=== PATIENT | male | born 1970 | race African-American/Black ===

== ENCOUNTER 2020-03-07 23:54 | Emergency (ER) | payer MEDICAID, OTHER ==
[2020-03-08 00:38] LABS: #Eosinphils 0.3 thou/uL (0.0-0.7); #Lymphocytes 3.4 thou/uL (1.20-3.40); #Monocytes 1.6 thou/uL (0.11-0.59); #Neutrophils 7.3 thou/uL (1.40-6.50); %Basophils 0.3 % (0.0-1.0); %Eosinophils 2.6 % (0.0-10.0); %Lymphocytes 27.1 % (21.0-51.0); %Monocytes 12.4 % (0.0-10.0); %Neutrophils 57.6 % (42.0-75.0); Hemoglobin 16.2 g/dL (14.0-18.0); Mean Corpuscular HGB CONC 32.5 g/dL (32.0-36.0); Mean Corpuscular Hemoglobin 30.8 pg (27.0-31.0); Mean Corpuscular Volume 94.9 fL (78.0-98.0); Mean Platelet Volume 7.9 fL (7.4-10.4); Platelet Count 193 thou/uL (130-400); RBC Distribution Width 12.9 % (11.5-14.5); Red Blood Cell (RBC) Count 5.26 mill/uL (4.70-6.10); White Blood Cell (WBC) Count 12.7 thou/uL (4.8-10.8)
[2020-03-08 01:04] LABS: ALT (SGPT) 27 U/L (8-55); AST (SGOT) 19 U/L (5-34); Albumin 3.8 g/dL (3.5-5.0); Alkaline Phosphatase 72 U/L (40-110); Anion Gap 13 mmol/L (10-20); BUN (Urea Nitrogen) 19 mg/dL (8.9-20.6); Bilirubin, Total 0.6 mg/dL (0.2-1.2); CK (CPK) 284 U/L (30-200); Calc. Creatinine Clearance 0 mL/min (70-130); Calcium 8.6 mg/dL (7.8-10.44); Carbon Dioxide 26 mmol/L (22-29); Chloride 100 mmol/L (98-107); Globulin 2.9 g/dL (2.4-3.5); Glucose 110 mg/dL (70-105); Lipase 25 U/L (8-78); Potassium 3.4 mmol/L (3.5-5.1); Protein, Total 6.7 g/dL (6.0-8.3); Sodium 136 mmol/L (136-145)
[2020-03-08] MEDS ORDERED: Lidocaine Viscous Sol 2% 15 ml UD Cup ONE (01:59)
[2020-03-08] MEDS ORDERED: Mag-Al 1200 mg/1200 mg/30 ML UDCUP ONE (01:59)
[2020-03-08 02:48] LABS: Troponin I Less than 0.010 ng/mL (< 0.028)
[2020-03-08] MEDS ORDERED: Morphine 4 MG/ML VIAL ONE (03:01)
[2020-03-08] MEDS ORDERED: Ondansetron PF 4 MG/2 ML Vial ONE (03:01)
--- NOTE | 2020-03-08 07:22 | CT ---
PRELIMINARY REPORT/[facility]/EMERGENCY AFTER HOURS PROCEDURE EXAM: CTA Chest with Intravenous Contrast CLINICAL HISTORY: M48, PT REPORTS ONSET CHEST PAIN TONIGHT APPROX 2330. PT DENIES N/V/D, SOB, F/C. PT STATES HE HAS HAD SIMILAR PAIN IN THE PAST, BUT TUMS TYPICALLY ALLEVIATES THE PAIN AND DID NOT CHANGE IT MUCH TONIGHT. TECHNIQUE: Axial CTA images of the chest with intravenous contrast. Three-dimensional MIP/volume rendered reform ations were performed. CONTRAST: With; 70ML ISOVUE 370 COMPARISON: None provided. FINDINGS: PULMONARY ARTERIES There is no intraluminal filling defect suspicious for PE. AORTA No thoracic aortic aneurysm or dissection. LUNGS Focal nodular opacity seen in the peripheral left upper lobe measuring 1.0 x 0.9 cm. PLEURAL SPACES No pleural effusion. No pneumothorax. HEART AND MEDIASTINUM No cardiomegaly. No significant pericardial effusion. LYMPH NODES No lymphadenopathy. BONES No focal osseous abnormality or acute fracture. CHEST WALL AND UPPER ABDOMEN Images through the upper abdomen are unremarkable. The chest wall is unremarkable. IMPRESSION: No evidence for acute pulmonary embolus. Focal nodular opacity seen in the peripheral left upper lobe measuring 1.0 x 0.9 cm. This may represe nt possible infectious versus inflammatory etiology, however close continued follow-up recommended after treatment to ensure resolution and exclude underlying pulmonary nodule. ELECTRONICALLY SIGNED BY: Rasta Mejia MD Mar 08, 2020 3:49:11 AM TRAUMA DIRECTOR This report is intended for review by the ordering physician only, in accordance of law. If you recei ve this report in error, please call [facility] at [phone]. FINAL REPORT Exam: CT angiogram of the chest HISTORY: Chest pain. COMPARISON: None TECHNIQUE: CT angiogram of the chest is performed in the axial plane. Three-dimensional reformatted i mages are submitted for interpretation FINDINGS: Mediastinum: No mass, lymphadenopathy or hematoma. HEART: Normal size. No significant pericardial fluid. Aorta: No aneurysm or dissection Upper solid abdominal viscera: No abnormality enhancement. Trachea and central bronchi: Patent Pleural spaces: No effusion Lung parenchyma: No right lung masses or consolidation. Focal nodular groundglass opacity in the late ral aspect of the left upper lobe. Lesion measures approximately 1.2 x 1.6 cm. Pneumothorax: None Osseous structures: No lytic or blastic lesions Pulmonary arteries: Adequate contrast opacification pulmonary arterial system to the level of segment al arteries. No filling defect to suggest pulmonary embolism IMPRESSION: 1. This report is in agreement with initial report by [facility]. 2. No evidence of pulmonary artery embolism to the level of the segmental arteries.. 3. Focal opacity in the lateral aspect of the left upper lobe. Correlate for infectious or inflammato ry process. CODE LN. Transcribed Date/Time: 03/08/2020 7:31 AM
--- NOTE | 2020-03-08 07:36 | RAD ---
Exam: Chest one view HISTORY:Left-sided chest pain. Comparison: None FINDINGS: Cardiac silhouette: Normal Aorta: Unremarkable Pulmonary vessels: Normal Costophrenic angles: Clear LUNGS: No masses or consolidation. Pneumothorax: None Osseous abnormalities: None IMPRESSION: No acute cardiopulmonary process.
== END 2020-03-08 04:50 | disposition home or self-care (01) ==
LOC: ERS 23:54
DX: R07.2 Precordial pain (principal); I10 Essential (primary) hypertension
CPT/HCPCS: 36415; 71045; 71275; 80053; 82550; 83690; 84484; 85025; 93005; 96374; 96375; J2270; J2405

== ENCOUNTER 2020-03-08 10:28 | Observation (INO) | payer MEDICARE, MEDICAID ==
[2020-03-08] MEDS ORDERED: Heparin 10,000 UNITS/ 10 ML VIAL ONE ×2 (10:42→10:52)
[2020-03-08] MEDS ORDERED: Aspirin Chewable 81 MG TAB ONE (10:42)
[2020-03-08] MEDS ORDERED: Nitroglycerin 50 MG/250 ML BOT 0 ML ONE (10:42)
[2020-03-08] MEDS ORDERED: Nitroglycerin 0.4 MG TAB 1 EACH ONE (10:43)
[2020-03-08 10:54] LABS: #Eosinphils 0.2 thou/uL (0.0-0.7); #Lymphocytes 1.8 thou/uL (1.20-3.40); #Monocytes 1.6 thou/uL (0.11-0.59); #Neutrophils 9.5 thou/uL (1.40-6.50); %Basophils 0.1 % (0.0-1.0); %Eosinophils 1.4 % (0.0-10.0); %Lymphocytes 13.7 % (21.0-51.0); %Neutrophils 72.8 % (42.0-75.0); Hemoglobin 15.7 g/dL (14.0-18.0); Mean Corpuscular HGB CONC 33.1 g/dL (32.0-36.0); Mean Corpuscular Hemoglobin 31.6 pg (27.0-31.0); Mean Corpuscular Volume 95.4 fL (78.0-98.0); Mean Platelet Volume 8.1 fL (7.4-10.4); Platelet Count 167 thou/uL (130-400); RBC Distribution Width 12.6 % (11.5-14.5); Red Blood Cell (RBC) Count 4.97 mill/uL (4.70-6.10)
--- NOTE | 2020-03-08 10:54 | RAD ---
EXAM: Portable chest PROVIDED CLINICAL HISTORY: Chest pain COMPARISON: 03/08/2020 12:12 AM FINDINGS: Cardiac and mediastinal silhouette is within normal limits. No focal consolidation, pleural fluid or pneumothorax evident. IMPRESSION: No evidence for an acute cardiopulmonary process.
[2020-03-08] MEDS ORDERED: Ondansetron PF 4 MG/2 ML Vial ONE (10:55)
[2020-03-08] MEDS ORDERED: Morphine 2 MG/ML VIAL ONE (10:55)
[2020-03-08] MEDS ORDERED: Fentanyl 100 MCG/2 ML VIAL ONE (11:13)
[2020-03-08] MEDS ORDERED: Midazolam HCl 2 mg/2 ml Vial ONE (11:14)
[2020-03-08 11:19] LABS: ALT (SGPT) 24 U/L (8-55); AST (SGOT) 17 U/L (5-34); Albumin 3.8 g/dL (3.5-5.0); Alkaline Phosphatase 66 U/L (40-110); Anion Gap 16 mmol/L (10-20); BUN (Urea Nitrogen) 12 mg/dL (8.9-20.6); Bilirubin, Total 0.9 mg/dL (0.2-1.2); CK (CPK) 243 U/L (30-200); Calc. Creatinine Clearance 0 mL/min (70-130); Calcium 8.8 mg/dL (7.8-10.44); Carbon Dioxide 22 mmol/L (22-29); Chloride 103 mmol/L (98-107); Globulin 2.8 g/dL (2.4-3.5); Glucose 135 mg/dL (70-105); Lipase 11 U/L (8-78); Potassium 3.3 mmol/L (3.5-5.1); Protein, Total 6.6 g/dL (6.0-8.3); Sodium 138 mmol/L (136-145)
[2020-03-08 11:30] LABS: INR-International Normal Ratio 0.9; PTT 23.7 sec (22.9-36.1); Prothrombin Time 12.5 sec (12.0-14.7)
[2020-03-08] MEDS ORDERED: Acetaminophen/Codeine 30-300mg Tablet PO PRN (11:44)
[2020-03-08] MEDS ORDERED: Sodium Chloride 0.9% 200 ML IV PRN (11:44)
[2020-03-08] MEDS ORDERED: Nitroglycerin 0.4 MG TAB (25 Tab Bottle) SL PRN (11:44)
[2020-03-08] MEDS ORDERED: Protamine Sulfate 50 MG/5 ML VIAL ONE (11:45)
[2020-03-08] MEDS ORDERED: Sodium Chloride 0.9% 1,000 ML IV SCH (11:45)
[2020-03-08] MEDS ORDERED: Nitroglycerin 4.9 GM Bottle ONE ×2 (11:56→15:07)
[2020-03-08 12:28] VITALS: BMI 33.1
[2020-03-08] MEDS ORDERED: Iopamidol 370 76% 50 ML VIAL FS ONE (13:03)
[2020-03-08] MEDS ORDERED: Iopamidol 370 76% 100 ML VIAL ONE (13:03)
[2020-03-08] MEDS: Acetaminophen/Codeine 30-300mg Tablet PO PRN ×2 (13:07→17:20)
--- NOTE | 2020-03-08 13:40 | HP ---
HISTORY: Forrest Brumfield is a 49-year-old black male, who came to the emergency room last night. At approximately 11 p.m., he had onset of sharp left-sided chest discomfort and came to the hospital about midnight. EKG and cardiac enzymes were unremarkable and ultimately he was discharged. When he went home this morning, he again had same discomfort and came back to the emergency room. While he was having the chest pain, his EKG showed new changes with [address]-segment elevation only in V2, but otherwise unremarkable. His pain then resolved and ST-segment returned to normal. He denies any shortness of breath, nausea, vomiting, or diaphoresis with the discomfort. PAST MEDICAL HISTORY: Hypertension. He denies any history of hypercholesterolemia or diabetes. OPERATIONS: None. MEDICATIONS: None. SOCIAL HISTORY: He abuses marijuana. He uses vaping. FAMILY HISTORY: Negative for coronary artery disease. REVIEW OF SYSTEMS: A 10-point review of systems unremarkable. PHYSICAL EXAMINATION: VITAL SIGNS: Blood pressure 117/76, pulse of 93. HEENT: PERRL. NECK: Supple. CHEST: Clear. CARDIAC: S1 and S2 normal without any S3, S4, or murmurs. Carotid upstrokes normal without bruits. ABDOMEN: Normal bowel sounds without tenderness or organomegaly. EXTREMITIES: Revealed no clubbing, cyanosis, or edema. NEUROLOGIC: Grossly intact. SKIN: Warm and dry. LABORATORY DATA: EKGs are normal except for the one when he was readmitted today which showed 2mm of ST elevation in lead V2. Chest CTA this morning prior to discharge revealed no evidence of pulmonary embolism. Hemoglobin 16.2, hematocrit 49.9, white count 12,700, platelets 193,000. Troponin I is negative x2. Sodium 136, potassium 3.4, chloride 100, carbon dioxide 26, BUN 19, creatinine 1.32. IMPRESSION: 1. Acute coronary syndrome with [address]-segment elevation in V2 only, which resolved when he is pain free. 2. Hypertension. 3. Marijuana use. 4. Uses vaping. 5. Chronic kidney disease. He earlier today had a contrast load with CT angiogram of the chest and going to [facility] where we give him a second contrast load; however, I feel that is appropriate with his EKG changes when he came in. RECOMMENDATIONS: The situation was discussed with the patient. It is recommended that he undergo cardiac catheterization. Risks were discussed including , myocardial infarction, dye reaction, vascular injury, CVA, transfusion, limb loss, renal loss, etc. Also risk of intervention with PTCA and stent placement were discussed including , myocardial infarction, emergent CABG, restenosis, stent thrombosis, vessel perforation, etc. He has had no history of gastrointestinal bleeding or stroke. He does not have any upcoming surgical procedures. It is recommended that a drug-eluting stent be placed if needed. Job ID: [id number] MTDD
[2020-03-08] MEDS ORDERED: Morphine 4 MG/ML VIAL SLOW IVP PRN (14:18)
[2020-03-08] MEDS ORDERED: Iopamidol-370 76% 500 ML 1 ML ONE (14:52)
[2020-03-08 18:40] LABS: Amphetamine Not Detected (NotDetected); Barbiturates Screen Not Detected (NotDetected); Benzodiazepine Screen Not Detected (NotDetected); Cocaine Metabolite Screen Not Detected (NotDetected); Medtox Control Line Valid? VALID (VALID); Medtox Reader # READER 4; Methadone Not Detected (NotDetected); Methamphetamine Not Detected (NotDetected); Opiate Screen Detected (NotDetected); Oxycodone Screen Not Detected (NotDetected); Phencyclidine (PCP) Not Detected (NotDetected); THC/Cannabinoid Screen Detected (NotDetected); Tricyclic Screen Not Detected (NotDetected)
[2020-03-08 19:54] LABS: Troponin I Less than 0.010 ng/mL (< 0.028)
[2020-03-09 04:21] LABS: SARS-CoV-2 PCR by NAA Not Detected (NotDetected)
[2020-03-09 05:08] LABS: Anion Gap 9 mmol/L (10-20); BUN (Urea Nitrogen) 8 mg/dL (8.9-20.6); Calc. Creatinine Clearance 124 mL/min (70-130); Calcium 8.5 mg/dL (7.8-10.44); Carbon Dioxide 28 mmol/L (22-29); Cardiac Risk 2.6 (Less than 4.5); Chloride 102 mmol/L (98-107); Cholesterol 128 mg/dl (< 200 Desired); Glucose 122 mg/dL (70-105); HDL Cholesterol 49 mg/dL (>60 Neg Risk); LDL Cholesterol, Calculated 68 mg/dL; Potassium 3.4 mmol/L (3.5-5.1); Sodium 136 mmol/L (136-145); Triglycerides 56 mg/dL (Less than 150)
[2020-03-09] MEDS: Amlodipine 5 MG TAB PO SCH (09:15)
[2020-03-09] MEDS: Acetaminophen/Codeine 30-300mg Tablet PO PRN (09:16)
[2020-03-09] MEDS: Aspirin 81 mg Enteric Coated Tablet PO SCH (09:16)
[2020-03-09] MEDS ORDERED: Potassium Chloride 20 MEQ TAB PO SCH (11:45)
--- NOTE | 2020-03-09 14:31 | RAD ---
Portable frontal chest radiograph: 03/09/2020 COMPARISON: 03/08/2020 HISTORY: Short of breath FINDINGS: There is a hazy area of peripheral groundglass opacity within the mid left lung zone which appears new when compared to the prior examination and may signify developing infectious pneumonitis. Right lung appears clear. Heart and mediastinal contours are unremarkable. IMPRESSION: New area of peripheral groundglass opacity within the lateral mid left lung zone. Questio n a history of Covid positive status.
[2020-03-09 14:59] LABS: Lactic Acid 1.4 mmol/L (0.5-2.2)
[2020-03-09 15:04] LABS: Anion Gap 15 mmol/L (10-20); BUN (Urea Nitrogen) 8 mg/dL (8.9-20.6); Calc. Creatinine Clearance 133 mL/min (70-130); Calcium 8.8 mg/dL (7.8-10.44); Carbon Dioxide 23 mmol/L (22-29); Chloride 104 mmol/L (98-107); Glucose 131 mg/dL (70-105); Magnesium 2.2 mg/dL (1.6-2.6); Potassium 3.8 mmol/L (3.5-5.1); Sodium 138 mmol/L (136-145)
[2020-03-09 15:05] LABS: Hemoglobin 14.4 g/dL (14.0-18.0); Mean Corpuscular HGB CONC 32.9 g/dL (32.0-36.0); Mean Corpuscular Hemoglobin 30.9 pg (27.0-31.0); Mean Platelet Volume 8.2 fL (7.4-10.4); Platelet Count 173 thou/uL (130-400); RBC Distribution Width 12.5 % (11.5-14.5); Red Blood Cell (RBC) Count 4.66 mill/uL (4.70-6.10); White Blood Cell (WBC) Count 15.6 thou/uL (4.8-10.8)
[2020-03-09 15:11] LABS: Band 4 % (5-11); Eosinophils 2 % (0-10); Lymphocytes 19 % (21-51); MDiff Complete? YES; Monocytes 3 % (0-10); Neutrophil 69 % (42-75); Platelet Morphology Comment Appears Adequate; RBC Morphology Normal; Reactive Lymphocytes 1 % (0-10)
--- NOTE | 2020-03-09 15:33 | PDOC.HOSPP ---
- Subjective Encounter Date: 03/09/20 Encounter Time: 15:23 Subjective: 41-year-old male with past medical history of hypertension initially admitted under department specialist service for question STEMI. Patient came in with chest pain and had ST elevation in V2. This was thought to be artifact, however patient was still taken to [facility]. Heart catheterization was normal and ST elevation and chest pain thought to be due to coronary vasospasm. Patient status post heart cath doing well postprocedure. Hospitalist service consulted for medical management and evaluation of patient's new onset hemoptysis. Patient reports that over the past few weeks he has had a productive cough that is new for him. He has been coughing up white/yellow mucus material. He denies fevers and chills or night sweats. No recent weight loss. Overnight however patient started having dark brown blood mixed in with his sputum. He denies chest pain currently and denies shortness of breath. Denies nausea vomiting diarrhea abdominal pain. Overnight he did have some fevers to about 101 which improved with some Tylenol. Patient was screened Covid negative on admission, and has no known Covid contacts. He has no recent travel. Denies IV drug use. - Objective Vital Signs & Weight: Vital Signs (12 hours) Temp Pulse Resp BP BP Pulse Ox 03/09/20 12:00 98.3 F 93 19 129/73 96 03/09/20 11:44 99.7 F H 98 17 110/58 L 110/58 L 97 03/09/20 09:15 97 03/09/20 07:34 97.8 F 93 18 129/73 96 03/09/20 03:50 92 L 03/09/20 03:43 101.1 F H 97 16 120/67 85 L Weight Weight 224 lb 9.6 oz I&O: 03/08/20 03/09/20 03/10/20 06:59 06:59 06:59 Intake Total 1220 Output Total 300 Balance 920 Result Diagrams: 03/09/20 14:31 03/09/20 14:31 Hospitalist ROS - Review of Systems Constitutional: reports: fever. denies: chills, sweats, weakness, malaise, other Eyes: denies: pain, vision change, conjunctivae inflammation, eyelid inflammation, redness, other ENT: denies: ear pain, ear discharge, nose pain, nose discharge, nose congestion, mouth pain, mouth swelling, throat pain, throat swelling, other Respiratory: reports: hemoptysis, SOB with excertion, sputum. denies: cough, dry, shortness of breath, pleuritic pain, wheezing, other Cardiovascular: denies: chest pain, palpitations, orthopnea, paroxysmal noc. dyspnea, edema, light headedness, other Gastrointestinal: denies: nausea, vomiting, abdominal pain, diarrhea, constipation, melena, hematochezia, other Genitourinary: denies: dysuria, frequency, incontinence, hematuria, retention, other Musculoskeletal: denies: neck pain, shoulder pain, arm pain, back pain, hand pain, leg pain, foot pain, other Skin: denies: rash, lesions, prakash, bruising, other Neurological: denies: weakness, numbness, incoordination, change in speech, confusion, seizures, other - Medication Medications: Active Medications Generic Name Dose Route Start Last Admin Trade Name Freq PRN Reason Stop Dose Admin Acetaminophen/Codeine Phosphate 1 tab 03/08/20 11:44 03/09/20 03:54 Acetaminophen/Codeine 30-300mg Tablet PO 1 tab Q4H PRN Administration Mild Pain (1-3) Acetaminophen/Codeine Phosphate 2 tab 03/08/20 11:44 03/09/20 09:16 Acetaminophen/Codeine 30-300mg Tablet PO 2 tab Q4H PRN Administration Moderate Pain (4-6) Amlodipine Besylate 2.5 mg 03/09/20 09:00 03/09/20 09:15 Amlodipine 5 Mg Tab PO 2.5 mg DAILY CHRIS Administration Aspirin 81 mg 03/09/20 09:00 03/09/20 09:16 Aspirin 81 Mg Enteric Coated Tablet PO 81 mg DAILY CHRIS Administration Isosorbide Mononitrate 30 mg 03/09/20 09:00 03/09/20 09:16 Isosorbide Mononitrate Er 30 Mg Tab PO 30 mg DAILY CHRIS Administration Morphine Sulfate 4 mg 03/08/20 14:18 03/08/20 14:29 Morphine 4 Mg/Ml Vial SLOW IVP 4 mg Q4H PRN Administration Chest Pain - Exam General Appearance: NAD, awake alert Eye: PERRL, anicteric sclera ENT: normocephalic atraumatic, no oropharyngeal lesions, moist mucosa Neck: supple, symmetric, no JVD, no thyromegaly, no lymphadenopathy, no carotid bruit Heart: RRR, no murmur, no gallops, no rubs, normal peripheral pulses Respiratory: CTAB, no wheezes, no ronchi, normal chest expansion, no tachypnea, normal percussion Respiratory - other findings: Rales at bases Gastrointestinal: soft, non-tender, non-distended, normal bowel sounds, no palpable masses, no hepatomegaly, no splenomegaly, no bruit Extremities: no cyanosis, no clubbing, no edema Skin: normal turgor, no lesions, no rashes Neurological: cranial nerve grossly intact, normal sensation to touch, no weakness, no focal deficits, no new deficit Musculoskeletal: normal tone, normal strength, no muscle wasting Psychiatric: normal affect, normal behavior, A&O x 3 Hosp A/P - Plan Coronary vasospasm 41-year-old male with past medical history of hypertension initially came in as code STEMI. Chest pain with [address] elevation in V2. Patient taken to [facility] and found to have normal coronary arteries with question possible vasospasm. Patient denies a history of drug use, however drug screen positive for opiates and marijuana. Question Prinzmetal's angina versus drug induced vasospasm. Cardiology following. Plan Cardiology following Hemoptysis Patient reports 2 to 3 weeks of worsening productive cough. In the past 24 hours has started bringing dark red bloody sputum. Febrile overnight to 100.1. H&H stable. Repeat chest x-ray shows question worsening of peripheral infiltrates. Will start patient on antibiotics for pneumonia coverage. On exam sputum appears current cellulitic. Will cover with ceftriaxone which includes Klebsiella coverage. Repeat WBC also increasing. Covid negative. Will repeat PCR to confirm negative status. Will send sputum for culture Gram stain and AFB. Plan Ceftriaxone, azithromycin Gram stain and culture Trend WBC, fever curve, lactic acid Hypertension On home hydrochlorothiazide and amlodipine. Normotensive currently after receiving Imdur. Will monitor and restart as needed. DVT prophylaxisSCDs Full code Case discussed with attending physician, Dr. Villatoro.
[2020-03-09] MEDS ORDERED: cefTRIAXone\\ROCEPHIN 1 GM in Sodium Chloride 0.9% 100 ML IVPB SCH (17:00)
[2020-03-09] MEDS ORDERED: Azithromycin 500 MG in Sodium Chloride 0.9% 250 ML 250 ML IVPB SCH (18:00)
[2020-03-09 19:00] LABS: SARS-CoV-2 PCR by NAA Not Detected (NotDetected)
[2020-03-09] MEDS: Acetaminophen 325 MG TAB PO PRN (21:21)
[2020-03-10 05:15] LABS: Troponin I 0.011 ng/mL (< 0.028)
[2020-03-10] MEDS: Acetaminophen 325 MG TAB PO PRN ×2 (06:34→11:05)
[2020-03-10] MEDS: Aspirin 81 mg Enteric Coated Tablet PO SCH (07:56)
[2020-03-10] MEDS: Amlodipine 5 MG TAB PO SCH (07:56)
[2020-03-10] MEDS ORDERED: Communication Order-Pharmacy FS SCH (08:45)
[2020-03-10 11:04] VITALS: BP 113/65; TEMP 99.3
--- NOTE | 2020-03-10 17:01 | DIS ---
DATE OF ADMISSION: 03/08/2020 DATE OF DISCHARGE: 03/10/2020 DISCHARGE DISPOSITION: To home. PRIMARY DISCHARGE DIAGNOSES: 1. Coronary vasospasm, resolved. 2. Pneumonia, resolving. 3. Hemoptysis secondary to pneumonia. 4. Chest pain secondary to coronary vasospasm, resolved. 5. Hypertension. 6. Marijuana abuse. PROCEDURES DONE DURING HOSPITALIZATION: The patient has had coronary angiogram done by Dr. Lopez, which showed normal coronaries and possible coronary artery spasm. Chest x-ray done on 03/09/2020, showed findings of mid left lung zone, ground- glass opacities suspicious for pneumonia. No acid-fast bacilli were seen in his sputum culture. CT angio chest done on the day of admission showed focal nodular opacities seen in the peripheral left upper lobe measuring 1 x 0.9 cm. No evidence of pulmonary embolus was seen. COVID-19 PCR x2 was not detected, one on 03/08/2020 and the second one on 03/09/2020. Urine drug screen was positive for cannabinoids and opiates. Total cholesterol 128, triglycerides 56, LDL 68, and HDL 49. Troponin x5 negative. He had a white count of 15 on the with 69% neutrophils. DISCHARGE MEDICATIONS: 1. Omnicef 300 mg p.o. twice daily for 1 week. 2. Norvasc 2.5 mg p.o. daily. 3. Albuterol inhaler 2 puffs four times daily. 4. Imdur extended release 30 mg p.o. daily. 5. Aspirin 81 mg p.o. daily. ALLERGIES: NO KNOWN DRUG ALLERGIES. INPATIENT CONSULT: Dr. Lopez for Cardiology. DISCHARGE PLAN: The patient to follow up with his primary care physician in 1 week at [facility], Dr. Lopez in 2 to 3 weeks. BRIEF COURSE DURING HOSPITALIZATION: The patient initially got admitted on the with STEMI activation due to ST elevation in V2 segment. The ST elevation was not very significant in V2 on the EKG. In view of this and the patient's complaint of chest pain, the patient was taken for cardiac catheterization. He had normal coronaries. The patient likely had vasospasm. He had temperature of 101 with left lung infiltrate. The patient also had hemoptysis secondary to that. He also abuses marijuana and does vaping. He is tolerating oral solid diet and ambulating. The patient is wanting to go home today. In view of this, he has been placed on oral antibiotics for a total duration of 7 days. He was counseled against vaping or using marijuana. He is hemodynamically stable and has been cleared for discharge by Dr. Lopez. Please note, I have seen and examined the patient on the day of discharge. Job ID: [id number] MTDD
[2020-03-11] MEDS ORDERED: Sodium Chloride 0.9% 1,000 ML IV SCH (06:00)
--- NOTE | 2020-03-23 18:22 | EKG ---
Test Reason : Blood Pressure : / mmHG Vent. Rate : 090 BPM Atrial Rate : 090 BPM P-R Int : 142 ms QRS Dur : 092 ms QT Int : 358 ms P-R-T Axes : 050 024 048 degrees QTc Int : 437 ms Normal sinus rhythm Normal ECG Confirmed by KYLE MCDONNELL M.D. ([id number]), editorial intern DALIA MOYER ([id number]) on 03/23/2020 6:22:30 PM Referred By: Confirmed By:KYLE MCDONNELL M.D.
== END 2020-03-10 12:44 | disposition home or self-care (01) ==
LOC: ERS 10:28 → 2NO 11:35
PROVIDERS: ADMIT Internal Medicine Cardiovascular Disease; ATTEND Internal Medicine Cardiovascular Disease
PROC: 4A023N7 Measurement of Cardiac Sampling and Pressure, Left Heart, Percutaneous Approach (ICD-10-PCS; principal; 2020-03-08)
PROC: B2111ZZ Fluoroscopy of Multiple Coronary Arteries using Low Osmolar Contrast (ICD-10-PCS; 2020-03-08)
DX: I20.1 Angina pectoris with documented spasm (principal); J18.9 Pneumonia, unspecified organism; I12.9 Hypertensive chronic kidney disease with stage 1 through stage 4 chronic kidney disease, or unspecified chronic kidney disease; N18.9 Chronic kidney disease, unspecified; F12.10 Cannabis abuse, uncomplicated; F17.290 Nicotine dependence, other tobacco product, uncomplicated; Z79.82 Long term (current) use of aspirin; Z79.899 Other long term (current) drug therapy; Z20.822 Contact with and (suspected) exposure to COVID-19; R07.2 Precordial pain; I10 Essential (primary) hypertension
CPT/HCPCS: 71045 ×2; 71275; 80048 ×2; 80053 ×2; 80061; 80306; 82550 ×2; 83605; 83690 ×2; 83735; 84484 ×4; 85025 ×3; 85347; 85610; 85730; 86850; 86900; 86901; 87070; 87116; 87205; 87206; 93005; 93458; 94760 ×4; 96374; 96375 ×2; 96376; 99285; G0378 ×3; J2270; U0003 ×2; U0005 ×2; 36415; 36416; 87186; 87635; 99152; J0456; J0696; J1644; J2250; J2405; J2720; J3010; J3490; J7050; Q9967

== ENCOUNTER 2022-12-28 14:58 | Emergency (ER) | payer MEDICAID, MEDICARE, OTHER ==
[2022-12-28 16:46] LABS: #Basophils 0.1 thou/uL (0.0-0.2); #Eosinphils 0.1 thou/uL (0.0-0.7); #Monocytes 0.5 thou/uL (0.11-0.59); #Neutrophils 6.6 thou/uL (1.40-6.50); %Basophils 0.6 % (0.0-1.0); %Lymphocytes 15.9 % (21.0-51.0); %Monocytes 6.1 % (0.0-10.0); %Neutrophils 75.9 % (42.0-75.0); Hematocrit 49.9 % (42.0-52.0); Hemoglobin 16.6 g/dL (14.0-18.0); Mean Corpuscular HGB CONC 33.3 g/dL (32.0-36.0); Mean Corpuscular Hemoglobin 30.8 pg (27.0-31.0); Mean Corpuscular Volume 92.6 fl (78.0-98.0); Platelet Count 171 10x3/uL (130-400); RBC Distribution Width 13.7 % (11.5-14.5); Red Blood Cell (RBC) Count 5.39 mill/uL (4.70-6.10); White Blood Cell (WBC) Count 8.7 10x3/uL (4.8-10.8)
[2022-12-28 17:07] LABS: ALT (SGPT) 19 U/L (8-55); AST (SGOT) 14 U/L (5-34); Albumin 3.7 g/dL (3.5-5.0); Alkaline Phosphatase 64 U/L (40-110); Anion Gap 13 mmol/L (10-20); BUN (Urea Nitrogen) 14 mg/dL (8.4-25.7); Bilirubin, Total 0.6 mg/dL (0.2-1.2); Calc. Creatinine Clearance 0 mL/min (70-130); Calcium 8.9 mg/dL (7.8-10.44); Carbon Dioxide 23 mmol/L (22-29); Chloride 107 mmol/L (98-107); Estimated GFR 57; Globulin 1.9 g/dL (2.4-3.5); Glucose 138 mg/dL (70-105); Potassium 3.9 mmol/L (3.5-5.1); Protein, Total 5.6 g/dL (6.0-8.3); Sodium 139 mmol/L (136-145)
== END 2022-12-28 19:16 | disposition home or self-care (01) ==
LOC: ERS 14:58
DX: S82.61XA Displaced fracture of lateral malleolus of right fibula, initial encounter for closed fracture (principal); I10 Essential (primary) hypertension; F17.290 Nicotine dependence, other tobacco product, uncomplicated; W18.30XA Fall on same level, unspecified, initial encounter
CPT/HCPCS: 36415; 80053; 85025; 93005